=== PATIENT | male | born 1965 | race Caucasian/White ===

== ENCOUNTER 2025-04-03 06:39 | Day surgery (SDC) | payer OTHER ==
[2025-04-03] MEDS: Lactated Ringers 1,000 ML IV SCH (06:45)
[2025-04-03] MEDS: CEFAZOLIN 2 GM/100 ML NaCl 2 GM/100 ML IVPB IV SCH (06:45)
[2025-04-03] MEDS: NEURONTIN PO ONE (06:46)
[2025-04-03] MEDS: celeBREX 100 MG PO ONE (06:46)
[2025-04-03] MEDS: Decadron 4 MG PO ONE (06:47)
[2025-04-03] MEDS: TYLENOL EXTRA STRENGTH 500 MG PO ONE (06:47)
[2025-04-03] MEDS ORDERED: NEURONTIN PO ONE (06:48)
[2025-04-03 07:05] VITALS: RESP 18
[2025-04-03] MEDS ORDERED: Marcaine Mpf 0.5% Vial 30 Ml ONE (08:18)
[2025-04-03] MEDS ORDERED: Xylocaine-Mpf 2% 5 Ml Vial ONE (08:42)
[2025-04-03] MEDS ORDERED: propofoL IV ONE ×2 (08:42→10:24)
[2025-04-03] MEDS ORDERED: SUBLIMAZE 100 MCG/2 ML ONE ×2 (08:42→10:59)
[2025-04-03] MEDS ORDERED: Zofran 4 MG/2 ML VIAL ONE (10:25)
[2025-04-03] MEDS ORDERED: DILAUDID 0.5 MG/0.5 ML SYRINGE ONE (11:29)
[2025-04-03 12:32] VITALS: BP 123/71; PULSE 79; TEMP 97.1; O2SAT 95
--- NOTE | 2025-04-04 12:30 | OP ---
SURGERY DATE/TIME: 04/03/2025 [id number] PREOPERATIVE DIAGNOSIS: Left prepatellar bursitis. POSTOPERATIVE DIAGNOSIS: Left prepatellar bursitis. PROCEDURE: Excision of left prepatellar bursa. SURGEON: Ze Weinstein DO ANESTHESIA: General. DESCRIPTION OF PROCEDURE AND FINDINGS: The patient was identified, and informed consent was obtained. The patient was taken to the operative suite where he was placed in supine position on the operating table, and the general anesthetic was administered. Once an appropriate level of anesthesia had been obtained, tourniquet was placed high on the left thigh. The left lower extremity was then prepped and draped in the usual sterile fashion. A standard time-out was taken. Following this, the leg was exsanguinated, and the tourniquet was elevated to 350 mmHg. Standard midline incision was accomplished. Skin and subcutaneous tissue incised. Meticulous dissection was carried out around the patient's very large prepatellar bursa. The bursa was excised in toto and was intact. It was passed to the back table and then sent to Pathology for further evaluation. Tourniquet was deflated. Hemostasis was obtained with the electrocautery unit. At this point, the wound was closed with 3-0 Monocryl. About 10 mL of platelet-rich plasma was injected in the cavity and allowed to set. At this point, then the remaining subcutaneous tissue was closed with 3-0 Monocryl. Carlos were utilized for skin. Platelet-poor plasma was placed on the skin edge, and an Aquacel dressing was then applied followed by application of an Anthony bandage for compression. Patient was then taken to the recovery room in satisfactory condition having tolerated the procedure well.
== END 2025-04-03 12:45 | disposition home or self-care (01) ==
LOC: SDC 06:39
PROVIDERS: ATTEND Orthopaedic Surgery
DX: M70.42 Prepatellar bursitis, left knee (principal)
CPT/HCPCS: J0690; J1171; J2405; J2704; J3010; A9270-GY